=== PATIENT | male | born 1980 | race Two or more races ===

== ENCOUNTER 2020-02-22 05:26 | Day surgery (SDC) | payer OTHER ==
[~2020-02-22 05:26] MED LIST: IBU600 MG PO
[2020-02-22] MEDS ORDERED: COLACE100 MG PO (09:56)
[2020-02-22] MEDS ORDERED: PERCOCET 5-3251 EACH PO (09:56)
== END 2020-02-22 15:35 | disposition home or self-care (01) ==
LOC: CIR.AMB 05:26
PROVIDERS: ATTEND Surgery
DX: K62.4 Stenosis of anus and rectum (principal); K64.8 Other hemorrhoids; K62.89 Other specified diseases of anus and rectum; K60.1 Chronic anal fissure; Z20.828 Contact with and (suspected) exposure to other viral communicable diseases